=== PATIENT | female | born 1960 | race Two or more races ===

== ENCOUNTER 2018-12-09 01:07 | Emergency (ER) | payer MEDICAID, OTHER ==
[~2018-12-09] VITALS: Ht 160 cm; Wt 61.2 kg
--- NOTE | 2018-12-09 01:10 | NUR ---
PT BIB SELF. COMP OF HAVING "CHEST PAIN RADIATING TO MY L ARM". NO SOB NOTED. PT AOX4. AMBULATORY W.STEADY GAIT. AWAITING MD RODNEY.
--- NOTE | 2018-12-09 01:15 | NUR ---
LABS DRAWN. SENT FOR ANALYSIS.
[2018-12-09] MEDS ORDERED: KETOROLAC TROMETHAMINE INJ 30 MG/ML VIAL IV ONE (01:30)
[2018-12-09] MEDS ORDERED: LORAZEPAM 1 MG TABLET PO ONE (01:30)
[2018-12-09 01:36] LABS: BASOPHILS % (AUTO) 0.5 % (0.0-2.0); EOSINOPHILS % (AUTO) 0.6 % (0.0-6.0); HEMATOCRIT 41 % (33-45); HEMOGLOBIN 13.8 g/dL (11.5-14.8); LYMPHOCYTES # (AUTO) 3.3 /CMM (0.8-4.8); LYMPHOCYTES % (AUTO) 40.9 % (20.0-44.0); MEAN CORPUSCULAR HGB CONC 34 g/dl (31.0-36.0); MEAN CORPUSCULAR VOLUME 90 fL (82-100); MONOCYTES # (AUTO) 0.5 /CMM (0.1-1.30); MONOCYTES % (AUTO) 6.1 % (2.0-12.0); NEUTROPHILS # (AUTO) 4.2 /CMM (1.8-8.9); NEUTROPHILS % (AUTO) 51.9 % (43.0-81.0); PLATELET COUNT (AUTO) 316 /CMM (150-450); RED BLOOD CELL COUNT(AUTO) 4.48 MIL/uL (4.0-5.2)
[2018-12-09] MEDS ORDERED: KETOROLAC TROMETHAMINE INJ 30 MG/ML VIAL ONE (01:36)
[2018-12-09] MEDS ORDERED: LORAZEPAM 1 MG TABLET ONE (01:36)
[2018-12-09 01:43] LABS: CARBON DIOXIDE 28 mmol/L (21-32); CHLORIDE 99 mmol/L (98-107); CREATININE 0.7 mg/dL (0.6-1.3); GLUCOSE 105 mg/dL (74-106); SODIUM SERUM 130 mmol/L (136-145); UREA NITROGEN, BLOOD 13 mg/dL (7-18)
[2018-12-09 01:48] LABS: POTASSIUM 2.7 mmol/L (3.5-5.1)
[2018-12-09] MEDS ORDERED: POTASSIUM CHLORIDE 20 MEQ TAB.PRT.SR PO ONE ×2 (01:52→02:00)
[2018-12-09 02:42] VITALS: BP 143/93
== END 2018-12-09 02:43 | disposition home or self-care (01) ==
LOC: ER 01:08
DX: R07.89 Other chest pain (principal); E87.6 Hypokalemia; F41.9 Anxiety disorder, unspecified; N95.9 Unspecified menopausal and perimenopausal disorder; R00.0 Tachycardia, unspecified; Z88.5 Allergy status to narcotic agent
CPT/HCPCS: 36415; 71045; 80048; 84484; 85025; 85730; 93005; 96374; 99284; A4606; J1885; Z7610

== ENCOUNTER 2020-02-15 16:23 | Emergency (ER) | payer MEDICAID, OTHER ==
[~2020-02-15] VITALS: Ht 157.5 cm; Wt 61.2 kg
--- NOTE | 2020-02-15 17:28 | NUR ---
PT REC'D TO ER C/O CP THIS MORNING AND IT JUST GOT WORSE SR EKG IV STARTED 20G LEFT AC LABS DRAWN SENT TO LAB
[2020-02-15] MEDS ORDERED: ASCO500T9 PO (17:32)
[2020-02-15] MEDS ORDERED: MULT-659 PO (17:32)
[2020-02-15] MEDS ORDERED: UBID100C13 PO (17:32)
[2020-02-15] MEDS ORDERED: FLUT16SP (17:32)
[2020-02-15] MEDS ORDERED: OMEG1CAP PO (17:32)
[2020-02-15] MEDS ORDERED: LORAZEPAM 1 MG TABLET ONE (17:35)
[2020-02-15] MEDS: LORAZEPAM 1 MG TABLET PO ONE (17:39)
--- NOTE | 2020-02-15 17:40 | NUR ---
PT GIVEN ATIVAN 1 MG PO NOW
[2020-02-15 17:58] LABS: BASOPHILS % (AUTO) 0.3 % (0.0-2.0); EOSINOPHILS % (AUTO) 0.2 % (0.0-6.0); HEMATOCRIT 40 % (33-45); HEMOGLOBIN 13.3 g/dL (11.5-14.8); LYMPHOCYTES # (AUTO) 1.2 /CMM (0.8-4.8); MEAN CORPUSCULAR HGB CONC 34 g/dl (31.0-36.0); MEAN CORPUSCULAR VOLUME 92 fL (82-100); MONOCYTES # (AUTO) 0.3 /CMM (0.1-1.30); MONOCYTES % (AUTO) 3.8 % (2.0-12.0); NEUTROPHILS # (AUTO) 5.9 /CMM (1.8-8.9); NEUTROPHILS % (AUTO) 79.7 % (43.0-81.0); PLATELET COUNT (AUTO) 299 /CMM (150-450); RED BLOOD CELL COUNT(AUTO) 4.32 MIL/uL (4.0-5.2); WHITE BLOOD COUNT (AUTO) 7.4 K/uL (4.3-11.0)
[2020-02-15 18:16] LABS: CARBON DIOXIDE 27 mmol/L (21-32); CHLORIDE 104 mmol/L (98-107); CREATININE 0.7 mg/dL (0.6-1.3); GLUCOSE 148 mg/dL (74-106); POTASSIUM 3.5 mmol/L (3.5-5.1); SODIUM SERUM 140 mmol/L (136-145); UREA NITROGEN, BLOOD 13 mg/dL (7-18)
[2020-02-15 18:32] LABS: ALANINE AMINOTRANSFERASE 33 U/L (12-78); ALBUMIN 3.7 g/dL (3.4-5.0); ALKALINE PHOSPHATASE 81 U/L (46-116); ASPARTATE AMINOTRANSFERASE 16 U/L (15-37); B-TYPE NATRIURETIC PEPTIDE 47 PG/ML (0-125); BILIRUBIN,DIRECT 0.1 mg/dL (0.0-0.2); BILIRUBIN,TOTAL 0.4 mg/dL (0.2-1.0); TOTAL PROTEIN, SERUM 7.1 g/dL (6.4-8.2)
[2020-02-15 21:51] VITALS: BP 139/99
[2020-02-15 21:55] LABS: D-DIMER 0.43 mg/L(FEU (0.17-0.50)
[2020-02-15] MEDS ORDERED: IBUPROFEN 600 MG TABLET PO ONE (22:14)
--- NOTE | 2020-02-15 22:20 | NUR ---
pt medically clear for DC per MD. IV removed. Catheter intact and site benign. Pressure and 4x4 applied to site. No bleeding noted.Patient discharged to home in stable condition. Rx and Written and verbal after care instructions given. Patient verbalizes understanding of instruction.
[2020-02-15] MEDS: IBUPROFEN 600 MG TABLET PO ONE (22:23)
== END 2020-02-15 22:20 | disposition home or self-care (01) ==
LOC: ER 16:32
DX: R07.89 Other chest pain (principal); F41.9 Anxiety disorder, unspecified; R00.0 Tachycardia, unspecified; R94.31 Abnormal electrocardiogram [ECG] [EKG]; Z88.5 Allergy status to narcotic agent; Z79.899 Other long term (current) drug therapy
CPT/HCPCS: 36415; 71045-TC; 80048-TC; 80076-TC; 83880; 84484-TC; 85025-TC; 85378-TC; 85730-TC

== ENCOUNTER 2021-01-13 23:10 | Emergency (ER) | payer OTHER ==
[~2021-01-13] VITALS: Ht 157.5 cm; Wt 63.5 kg
[~2021-01-13 23:10] MED LIST: ASCO-352 PO; FLUT16SP; MULT-659 PO; OMEG1CAP PO; UBID100C13 PO
--- NOTE | 2021-01-13 23:32 | NUR ---
PT BIBSELF C/O POSTERIOR HEADACHE SINCE AM AND HIGH BP. PT AAOX4. PT STATES SHE TOOK 200MG OF IBUPROFEN WITHOUT RELIEF. PT BREATHING EVENLY AND UNLABORED. PT ATTACHED TO MONITOR AND POX. SKIN WARM, DRY, AND INTACT. MD AT BEDSIDE FOR EVALUATION. PT GIVEN BLANKET AND CALL LIGHT WITHIN REACH. WILL CONTINUE TO MONITOR.
[2021-01-13] MEDS ORDERED: IBUPROFEN 400 MG TABLET ONE (23:39)
[2021-01-14] MEDS ORDERED: IBUPROFEN 400 MG TABLET PO ONE
[2021-01-14] MEDS ORDERED: IBUP-1957 PO (00:27)
[2021-01-14 00:39] VITALS: BP 142/75
--- NOTE | 2021-01-14 00:39 | NUR ---
Patient discharged to home in stable condition. Written and verbal after care instructions given. Patient verbalizes understanding of instruction. Pt ambulatory with a steady gait
== END 2021-01-14 00:39 | disposition home or self-care (01) ==
LOC: ER 23:17
DX: R51.9 Headache, unspecified (principal); I10 Essential (primary) hypertension; Z88.5 Allergy status to narcotic agent; Z79.899 Other long term (current) drug therapy

== ENCOUNTER 2021-06-09 02:01 | Emergency (ER) | payer OTHER ==
[~2021-06-09] VITALS: Ht 157.5 cm; Wt 63.5 kg
[~2021-06-09 02:01] MED LIST changes: +IBUP-1957 PO
[2021-06-09 02:17] VITALS: BP 147/104
== END 2021-06-09 03:00 | disposition home or self-care (01) ==
LOC: ER 02:13
DX: F41.9 Anxiety disorder, unspecified (principal); Z71.1 Person with feared health complaint in whom no diagnosis is made; Z88.5 Allergy status to narcotic agent; Z79.899 Other long term (current) drug therapy

== ENCOUNTER 2021-08-11 06:26 | Emergency (ER) | payer OTHER ==
[~2021-08-11] VITALS: Ht 157.5 cm; Wt 63.5 kg
--- NOTE | 2021-08-11 06:44 | NUR ---
PATIENT CAME IN FOR ABDOMINAL PAIN 06/04 WITH DIARRHEA. A/O X 4. PATIENT WAITING TO BE SEEN BY
[2021-08-11] MEDS ORDERED: KETOROLAC TROMETHAMINE 15 MG/ML VIAL ONE (07:23)
[2021-08-11] MEDS ORDERED: ONDANSETRON HCL/PF 4 MG/2 ML VIAL ONE (07:24)
[2021-08-11] MEDS ORDERED: MAG HYDROX/AL HYDROX/SIMETH 30 ML UDC ONE (07:26)
--- NOTE | 2021-08-11 07:27 | NUR ---
ASSESSED PT ON BED AWAKE AND ALERT, NOT IN RESPIRATORY DISTRESS, V/S STABLE, KEPT RESTED AND COMFORTABLE. WILL CONTINUE TO MONITOR.
[2021-08-11] MEDS: IV NS 0.9% 1,000 ML BAG IV ONE (07:33)
[2021-08-11] MEDS: MAG HYDROX/AL HYDROX/SIMETH 30 ML UDC PO ONE (07:34)
[2021-08-11] MEDS: ONDANSETRON HCL/PF 4 MG/2 ML VIAL IVP ONE (07:34)
[2021-08-11] MEDS: KETOROLAC TROMETHAMINE INJ 30 MG/ML VIAL IV ONE (07:34)
[2021-08-11] MEDS: LIDOCAINE VISCOUS 2% UD 15 ML UDC MM ONE (07:34)
[2021-08-11] MEDS ORDERED: LIDOCAINE VISCOUS 2% UD 15 ML UDC ONE (07:38)
[2021-08-11 07:43] LABS: BASOPHILS % (AUTO) 0.3 % (0.0-2.0); EOSINOPHILS % (AUTO) 0.9 % (0.0-6.0); HEMATOCRIT 38 % (33-45); HEMOGLOBIN 12.7 g/dL (11.5-14.8); LYMPHOCYTES # (AUTO) 1.4 K/uL (0.8-4.8); LYMPHOCYTES % (AUTO) 18.7 % (20.0-44.0); MEAN CORPUSCULAR HGB CONC 34 g/dl (31.0-36.0); MEAN CORPUSCULAR VOLUME 90 fL (82-100); MONOCYTES # (AUTO) 0.3 K/uL (0.1-1.30); MONOCYTES % (AUTO) 4.6 % (2.0-12.0); NEUTROPHILS # (AUTO) 5.7 K/uL (1.8-8.9); NEUTROPHILS % (AUTO) 75.5 % (43.0-81.0); PLATELET COUNT (AUTO) 308 K/uL (150-450); RED BLOOD CELL COUNT(AUTO) 4.15 MIL/uL (4.0-5.2); WHITE BLOOD COUNT (AUTO) 7.5 K/uL (4.3-11.0)
[2021-08-11 07:58] LABS: ALBUMIN 3.4 g/dL (3.4-5.0); BILIRUBIN,DIRECT 0.1 mg/dL (0.0-0.2); BILIRUBIN,TOTAL 0.6 mg/dL (0.2-1.0); CALCIUM, SERUM 8.5 mg/dL (8.5-10.1); CREATININE 0.7 mg/dL (0.6-1.3); POTASSIUM 3.5 mmol/L (3.5-5.1); TOTAL PROTEIN, SERUM 7.2 g/dL (6.4-8.2)
--- NOTE | 2021-08-11 08:25 | NUR ---
CRISIS COUNSELOR AT BEDSIDE FOR ULTRASOUND
[2021-08-11] MEDS ORDERED: ONDA4TAB11 PO (09:45)
[2021-08-11] MEDS ORDERED: DICY20TA11 PO (09:45)
[2021-08-11] MEDS ORDERED: MAG355OR18 PO (09:45)
[2021-08-11] MEDS ORDERED: FAMO-131 PO (09:45)
--- NOTE | 2021-08-11 10:09 | NUR ---
Patient discharged to home in stable condition. Written and verbal after care instructions given. Patient verbalizes understanding of instruction.
[2021-08-11 10:10] VITALS: BP 128/80
== END 2021-08-11 10:11 | disposition home or self-care (01) ==
LOC: ER 06:47
DX: K52.9 Noninfective gastroenteritis and colitis, unspecified (principal); I10 Essential (primary) hypertension; Z88.5 Allergy status to narcotic agent; Z79.899 Other long term (current) drug therapy
CPT/HCPCS: 36415; 76705; 80048; 80076; 83690; 85025; 96361; 96374; 96375; 99284; J1885; J2405

== ENCOUNTER 2022-09-24 10:11 | Emergency (ER) | payer OTHER ==
[~2022-09-24] VITALS: Ht 157.5 cm; Wt 65.8 kg
[~2022-09-24 10:11] MED LIST changes: +DICY20TA11 PO; +FAMO-131 PO; +MAG355OR18 PO; +ONDA4TAB11 PO
--- NOTE | 2022-09-24 10:25 | NUR ---
BIBDAUGHTER THIS 62/F WITH CC OF ABDOMINAL CRAMPING, DIARRHEA WHICH STARTED LAST NIGHT. PAIN SCALE OF 8/10. PATIENT IS AAOX4. ABLE TO MAKE NEEDS KNOWN. PLACED COMFORTABLY IN BED. VITALS CHECKED.
--- NOTE | 2022-09-24 10:27 | NUR ---
PT IS INSTRUCTED TO COLLECT URINE SAMPLE FOR TESTING
[2022-09-24] MEDS ORDERED: IBUPROFEN 200 MG TABLET ONE (10:53)
[2022-09-24] MEDS ORDERED: DICYCLOMINE HCL 10 MG CAPSULE PO ONE ×2 (10:53→11:00)
[2022-09-24] MEDS ORDERED: IBUPROFEN 600 MG TABLET ONE (10:53)
[2022-09-24] MEDS ORDERED: IV NS 0.9% 1,000 ML IV ONE (11:00)
[2022-09-24] MEDS ORDERED: IBUPROFEN 400 MG TABLET PO ONE (11:00)
[2022-09-24] MEDS ORDERED: DICY10CA37 PO (11:00)
[2022-09-24] MEDS ORDERED: LOPE2CAP40 PO (11:00)
--- NOTE | 2022-09-24 12:00 | NUR ---
IV removed. Catheter intact and site benign. Pressure and 4x4 applied to site. No bleeding noted.Patient discharged to home in stable condition. Written and verbal after care instructions given. Patient verbalizes understanding of instruction.
[2022-09-24 12:16] VITALS: BP 135/93
== END 2022-09-24 12:00 | disposition home or self-care (01) ==
LOC: ER 10:13
DX: A08.4 Viral intestinal infection, unspecified (principal); I10 Essential (primary) hypertension; Z88.8 Allergy status to other drugs, medicaments and biological substances; Z79.899 Other long term (current) drug therapy
CPT/HCPCS: 99283; 96360; J7030

== ENCOUNTER 2023-08-22 22:30 | Emergency (ER) | payer OTHER ==
[~2023-08-22] VITALS: Ht 160 cm; Wt 63.5 kg
[~2023-08-22 22:30] MED LIST changes: +DICY10CA37 PO; +LOPE2CAP40 PO
[2023-08-22 23:41] VITALS: TEMP 100.3
[2023-08-23] MEDS ORDERED: GUAIFENESIN/D-METHORPHAN HB 5 ML UDC PO ONE
[2023-08-23] MEDS ORDERED: KETOROLAC TROMETHAMINE INJ 30 MG/ML VIAL IM ONE
[2023-08-23] MEDS ORDERED: GUAIFENESIN/D-METHORPHAN HB 5 ML UDC ONE (00:03)
[2023-08-23] MEDS ORDERED: KETOROLAC TROMETHAMINE INJ 30 MG/ML VIAL ONE (00:03)
[2023-08-23] MEDS ORDERED: BENZ-13 PO (00:54)
[2023-08-23] MEDS ORDERED: KETO10TA2 PO (00:54)
[2023-08-23] MEDS ORDERED: GUAI1TBM19 PO (00:54)
[2023-08-23] MEDS ORDERED: RITO100T4 PO (00:54)
[2023-08-23 01:19] VITALS: BP 131/87; O2SAT 96
== END 2023-08-23 01:20 | disposition home or self-care (01) ==
LOC: ER 22:31
DX: U07.1 COVID-19 (principal); J02.9 Acute pharyngitis, unspecified; I10 Essential (primary) hypertension; Z79.899 Other long term (current) drug therapy; Z88.5 Allergy status to narcotic agent
CPT/HCPCS: 99284; 71045; 87804 ×2; 87426; 96372; C9803; J1885

== ENCOUNTER 2024-12-19 20:01 | Emergency (ER) | payer OTHER ==
[~2024-12-19] VITALS: Ht 157.5 cm; Wt 67.1 kg
[~2024-12-19 20:01] MED LIST changes: +BENZ-13 PO; +GUAI1TBM19 PO; +KETO10TA2 PO; +RITO100T4 PO
[2024-12-20 00:04] VITALS: BP 143/83; TEMP 98.3; O2SAT 99
== END 2024-12-19 23:50 | disposition home or self-care (01) ==
LOC: ER 20:14
DX: J06.9 Acute upper respiratory infection, unspecified (principal); R09.82 Postnasal drip; H92.02 Otalgia, left ear; J02.9 Acute pharyngitis, unspecified; R05.9 Cough, unspecified; I10 Essential (primary) hypertension; Z79.1 Long term (current) use of non-steroidal anti-inflammatories (NSAID); Z88.5 Allergy status to narcotic agent; Z20.822 Contact with and (suspected) exposure to COVID-19